=== PATIENT | male | born 1960 | race Caucasian/White ===

== ENCOUNTER 2017-11-03 13:51 | Emergency (ER) | payer OTHER, BC ==
[2017-11-03 15:15] LABS: BASO # 0.1 10^3/uL (0.0-0.2); BASO % 0.8 % (0.0-1.0); EOS # 0.1 10^3/uL (0.0-0.50); EOS % 1.3 % (0.0-3.0); HEMATOCRIT 41.1 % (42.0-52.0); HEMOGLOBIN 14.2 g/dl (14.0-18.0); IMMATURE GRANULOCYTE % 0.2 % (0-0); LYMPH # 1.9 10^3/uL (1.5-4.5); LYMPH % 21.2 % (24.0-44.0); MEAN CORPUSCULAR HEMOGLOBIN 32.2 pg (27.0-33.0); MEAN CORPUSCULAR HGB CONC 34.5 g/dl (32.0-36.5); MEAN CORPUSCULAR VOLUME 93.2 fl (80.0-96.0); MONO # 0.9 10^3/uL (0.0-0.8); MONO % 9.8 % (0.0-5.0); NEUTROPHILS # 5.9 10^3/uL (1.8-7.7); NEUTROPHILS % 66.7 % (36.0-66.0); PLATELET COUNT, AUTOMATED 215 10^3/uL (150-450); RED BLOOD COUNT 4.41 10^6/uL (4.30-6.10); RED CELL DISTRIBUTION WIDTH 12.7 % (11.5-14.5); WHITE BLOOD COUNT 8.9 10^3/uL (4.0-10.0)
[2017-11-03] MEDS ORDERED: ISOVUE-370 76% 100ML VIAL (Q9967) As Ordered (15:29)
[2017-11-03 15:38] LABS: ALBUMIN 4.7 GM/DL (3.2-5.2); ALBUMIN/GLOBULIN RATIO 1.21 (1.00-1.93); ALKALINE PHOSPHATASE 102 U/L (45-117); ALT/SGPT 24 U/L (12-78); ANION GAP 5 MEQ/L (8-16); AST/SGOT 14 U/L (7-37); BILIRUBIN,TOTAL 0.3 MG/DL (0.2-1.0); BLOOD UREA NITROGEN 24 MG/DL (7-18); CALCIUM LEVEL 9.3 MG/DL (8.5-10.1); CARBON DIOXIDE LEVEL 29 MEQ/L (21-32); CHLORIDE LEVEL 106 MEQ/L (98-107); CREATININE FOR GFR 1.04 MG/DL (0.70-1.30); GLOMERULAR FILTRATION RATE > 60.0 (>56); GLUCOSE, FASTING 88 MG/DL (70-105); POTASSIUM SERUM 3.9 MEQ/L (3.5-5.1); SODIUM LEVEL 140 MEQ/L (136-145); TOTAL PROTEIN 8.6 GM/DL (6.4-8.2)
[2017-11-03] MEDS: AUGMENTIN 875 MG TAB PO (18:30)
== END 2017-11-03 18:37 | disposition home or self-care (01) ==
LOC: M ED 13:51
DX: R59.0 Localized enlarged lymph nodes (principal); E78.00 Pure hypercholesterolemia, unspecified; I10 Essential (primary) hypertension; M79.9 Soft tissue disorder, unspecified; F32.9 Major depressive disorder, single episode, unspecified; K57.30 Diverticulosis of large intestine without perforation or abscess without bleeding; Z79.82 Long term (current) use of aspirin; Z79.899 Other long term (current) drug therapy
CPT/HCPCS: Q9967

== ENCOUNTER 2020-02-15 09:56 | Inpatient (IN) | payer OTHER ==
[~2020-02-15] VITALS: Ht 185.4 cm; Wt 106.9 kg
[2020-02-15] VITALS (19 sets, daily range): BP systolic 101–120; BP diastolic 55–67
[~2020-02-15 09:56] MED LIST: ALLO300T2 PO; AMLO10TA2 PO; AMOX875T19 PO; ASPI81CH PO; AUGM875T28 PO; BACT800T5 PO; BUPR100T6 PO; CIPR500T89 PO; DICL50TAB PO; FLUO20CA20 PO; FURO20TA2 PO; MELO15TA3 PO; METO100T PO; POTA20TA PO; PRAV10TA4 PO; SERT-138 PO; TYLE325T5 PO; ZEST20TA8 PO; [UNRECOGNIZED DRUG - REMARK]; [UNRECOGNIZED DRUG - REMARK]; [UNRECOGNIZED DRUG - REMARK]; [UNRECOGNIZED DRUG - REMARK]; pota
[2020-02-15] MEDS ORDERED: NS 1,000 ML IV ONE (10:15)
[2020-02-15] MEDS ORDERED: PANTOPRAZOLE 40MG VIAL (C9113 PER 1) IV ONE (10:15)
[2020-02-15 10:50] LABS: BASO % 0.4 % (0.0-1.0); EOS # 0.1 10^3/uL (0.0-0.5); EOS % 0.6 % (0.0-3.0); LYMPH # 1.1 10^3/uL (1.5-5.0); LYMPH % 13.7 % (24.0-44.0); MONO # 0.7 10^3/uL (0.0-0.8); MONO % 9.4 % (0.0-5.0); NEUTROPHILS % 75.4 % (36.0-66.0); PLATELET COUNT, AUTOMATED 148 10^3/uL (150-450); RED BLOOD COUNT 1.91 10^6/uL (4.30-6.10); WHITE BLOOD COUNT 7.9 10^3/uL (4.0-10.0)
[2020-02-15 10:54] LABS: HEMATOCRIT 19.1 % (42.0-52.0)
[2020-02-15 10:55] LABS: HEMOGLOBIN 6.3 g/dl (13.5-17.5)
[2020-02-15 11:01] LABS: INR 1.15; PROTHROMBIN TIME 14.4 SECONDS (11.8-14.0)
[2020-02-15 11:21] LABS: ALBUMIN 3.3 GM/DL (3.2-5.2); ALT/SGPT 21 U/L (12-78); BILIRUBIN,DIRECT < 0.1 MG/DL (0.0-0.2); BILIRUBIN,TOTAL 0.2 MG/DL (0.2-1.0); CPK CREATINE PHOSPHOKINASE 98 U/L (39-308); LIPASE 161 U/L (73-393); MB/CK RELATIVE INDEX 2.04 (< OR =4); TROPONIN I < 0.02 NG/ML (< 0.10)
[2020-02-15] MEDS ORDERED: CYAN100050 PO (12:54)
[2020-02-15] MEDS ORDERED: LISI40TA PO (12:54)
[2020-02-15] MEDS ORDERED: COEN100T PO (12:54)
[2020-02-15] MEDS ORDERED: MULT-6 PO (12:54)
[2020-02-15] MEDS ORDERED: FISH1000 PO (12:54)
[2020-02-15] MEDS ORDERED: METO100T5 PO (12:54)
[2020-02-15] MEDS ORDERED: TRIA37.5 PO (12:54)
[2020-02-15] MEDS ORDERED: ASPI-161 PO (12:54)
[2020-02-15] MEDS ORDERED: AMLO10TA5 PO (12:54)
[2020-02-15] MEDS ORDERED: ZYLO300T6 PO (12:54)
[2020-02-15] MEDS ORDERED: CRES40TA PO (12:54)
[2020-02-15 13:35] LABS: MEAN CORPUSCULAR HEMOGLOBIN 33.3 pg (27.0-33.0); MEAN CORPUSCULAR HGB CONC 33.5 g/dl (32.0-36.5); MEAN CORPUSCULAR VOLUME 99.5 fl (80.0-96.0); PLATELET COUNT, AUTOMATED 160 10^3/uL (150-450); RED BLOOD COUNT 1.98 10^6/uL (4.30-6.10); WHITE BLOOD COUNT 8.4 10^3/uL (4.0-10.0)
[2020-02-15 13:43] LABS: HEMATOCRIT 19.7 % (42.0-52.0); HEMOGLOBIN 6.6 g/dl (13.5-17.5)
[2020-02-15] MEDS: PANTOPRAZOLE SODIUM 40 MG in D5W 50 ML IV SCH ×3 (13:46→23:35)
[2020-02-15] MEDS: LR 1,000 ML IV SCH ×2 (14:58→18:00)
--- NOTE | 2020-02-15 18:38 | ECGEPIP ---
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
--- NOTE | 2020-02-15 19:52 | IPNPDOC ---
Text Note Date of Service The patient was seen on 02/15/20. NOTE Patient is a 59M admitted through the ED with complaints of weakness, lighthea ded, dizziness associated with passage of melanotic stools for the past 3 days. He reports some burning discomfort in his epigastrium. Denies vomiting, hematemesis. He does not have significant alcohol history. He takes NSAIDs for arthritis and 81 mg aspirin daily. He has no prior history of peptic ulcer disease. He was found to be profoundly anemic with hgb of 6.3 On exam, overall looks comfortable pale appearing lips dry, no obvius jugular venous distention regular heart rate and rhythm, no murmurs clear breath sounds to auscultation bilaterally. abdomen, soft, nondistended, nontender impression Upper GI bleed Patient is currently receiving 2 u prbc. He is hemodynamically stable. He was counseled for need for endoscopy both for diagnostic and therapeutic effect. VS,Fishbone, I+O VS, Fishbone, I+O Laboratory Tests 02/15/20 10:29 02/15/20 13:14 Vital Signs Date Time Temp Pulse Resp B/P (MAP) Pulse Ox O2 Delivery O2 Flow Rate FiO2 02/15/20 18:45 99.0 68 18 112/61 97 Room Air JULIO CANALES MD February 15, 2020 19:52
[2020-02-15 20:00] LABS: HEMATOCRIT 22.2 % (42.0-52.0); HEMOGLOBIN 7.5 g/dl (13.5-17.5); MEAN CORPUSCULAR HEMOGLOBIN 32.5 pg (27.0-33.0); MEAN CORPUSCULAR HGB CONC 33.8 g/dl (32.0-36.5); MEAN CORPUSCULAR VOLUME 96.1 fl (80.0-96.0); PLATELET COUNT, AUTOMATED 141 10^3/uL (150-450); RED BLOOD COUNT 2.31 10^6/uL (4.30-6.10); WHITE BLOOD COUNT 7.2 10^3/uL (4.0-10.0)
[2020-02-15] MEDS ORDERED: propofoL 200 MG/20 ML VIAL As Ordered ONE (20:38)
[2020-02-15] MEDS ORDERED: LIDOCAINE 2% 100MG/5ML SDV (FOR ANES.) As Ordered ONE (20:38)
[2020-02-15] MEDS ORDERED: PHENYLephrine HCL 500 MCG/5 ML (100MCG/ML) SYRINGE (J2370) As Ordered ONE (20:44)
--- NOTE | 2020-02-15 20:50 | ROOR ---
Patient Name: Rangel Gannon Procedure Date: 02/15/2020 7:55 PM Date of : 1960 Age: 59 Room: icu Gender: Male Note Status: Finalized Procedure: Upper GI endoscopy Indications: Melena Providers: Chava Gonzalez MD Referring MD: 2. Inpatient 2. Inpatient Requesting Provider: Medicines: Monitored Anesthesia Care Complications: No immediate complications. Procedure: Pre-Anesthesia Assessment: - Prior to the procedure, a History and Physical was performed, and patient medications and allergies were reviewed. The patient is competent. The risks and benefits of the procedure and the sedation options and risks were discussed with the patient. All questions were answered and informed consent was obtained. Patient identification and proposed procedure were verified by the physician, the nurse and the anesthesiologist in the procedure room. Mental Status Examination: alert and oriented. Airway Examination: normal oropharyngeal airway and neck mobility. Respiratory Examination: clear to auscultation. CV Examination: normal. Prophylactic Antibiotics: The patient does not require prophylactic antibiotics. Prior Anticoagulants: The patient has taken no previous anticoagulant or antiplatelet agents except for aspirin. ASA Grade Assessment: III - A patient with severe systemic disease. After reviewing the risks and benefits, the patient was deemed in satisfactory condition to undergo the procedure. The anesthesia plan was to use monitored anesthesia care (MAC). Immediately prior to administration of medications, the patient was re-assessed for adequacy to receive sedatives. The heart rate, respiratory rate, oxygen saturations, blood pressure, adequacy of pulmonary ventilation, and response to care were monitored throughout the procedure. The physical status of the patient was re-assessed after the procedure. The Endoscope was introduced through the mouth, and advanced to the second part of duodenum. The upper GI endoscopy was accomplished without difficulty. The patient tolerated the procedure well. Findings: Islands of salmon-colored mucosa were present at 20 cm. No other visible abnormalities were present. A small hiatal hernia was present. Diffuse atrophic mucosa was found in the gastric body. A single small mucosal papule (nodule) with no bleeding and no stigmata of recent bleeding was found in the prepyloric region of the stomach. Biopsies were taken with a cold forceps for Helicobacter pylori testing. One non-bleeding cratered duodenal ulcer with no stigmata of bleeding was found in the first portion of the duodenum. The lesion was 4 mm in largest dimension. This was biopsied with a cold forceps for histology. Patchy mild inflammation characterized by congestion (edema) and erythema was found in the first portion of the duodenum. A medium non-bleeding diverticulum was found in the second portion of the duodenum. The second portion of the duodenum was normal. No signs of active bleeding at the stomach and duodenum, normal 2nd portion of duodenum Impression: - Olla-colored mucosa. - Small hiatal hernia. - Gastric mucosal atrophy. - A single mucosal papule (nodule) found in the stomach. Biopsied. - Non-bleeding duodenal ulcer with no stigmata of bleeding. Biopsied. - Acute duodenitis. - Non-bleeding duodenal diverticulum. - Normal second portion of the duodenum. Recommendation: - Full liquid diet today. - Use Protonix (pantoprazole) 40 mg PO BID today. Chava Gonzalez MD Chava Gonzalez MD 02/15/2020 8:50:11 PM Electronically signed by Chava Gonzalez MD Number of Addenda: 0 Note Initiated On: 02/15/2020 7:55 PM Estimated Blood Loss: Estimated blood loss was minimal.
[2020-02-15] MEDS ORDERED: LACTATED RINGER'S 1000 ML IV STA (21:22)
[2020-02-15] MEDS ORDERED: LR 1,000 ML IV SCH (21:30)
[2020-02-15] MEDS ORDERED: ONDANSETRON 4MG/2ML VIAL IV PRN (21:30)
[2020-02-16] VITALS (15 sets, daily range): BP systolic 91–120; BP diastolic 54–70
[2020-02-16] MEDS: PANTOPRAZOLE SODIUM 40 MG in D5W 50 ML IV SCH ×2 (04:14→09:21)
[2020-02-16 04:42] LABS: HEMATOCRIT 26.6 % (42.0-52.0); HEMOGLOBIN 8.9 g/dl (13.5-17.5); MEAN CORPUSCULAR HEMOGLOBIN 31.4 pg (27.0-33.0); MEAN CORPUSCULAR HGB CONC 33.5 g/dl (32.0-36.5); PLATELET COUNT, AUTOMATED 120 10^3/uL (150-450); RED BLOOD COUNT 2.83 10^6/uL (4.30-6.10); WHITE BLOOD COUNT 6.7 10^3/uL (4.0-10.0)
[2020-02-16 05:03] LABS: BLOOD UREA NITROGEN 23 MG/DL (7-18); CALCIUM LEVEL 7.8 MG/DL (8.5-10.1); CARBON DIOXIDE LEVEL 29 MEQ/L (21-32); CHLORIDE LEVEL 110 MEQ/L (98-107); GLOMERULAR FILTRATION RATE > 60.0 (>56); GLUCOSE, FASTING 108 MG/DL (70-100); POTASSIUM SERUM 3.9 MEQ/L (3.5-5.1); SODIUM LEVEL 145 MEQ/L (136-145)
--- NOTE | 2020-02-16 11:35 | IPNPDOC ---
Date Seen The patient was seen on 02/16/20. Progress Note SUBJECTIVE: Pt is a 59-year-old with past medical history of arthritis of NSAID use presents with abdominal pain and found to have a hemoglobin of 6.3. Hes postop day #1 status post endoscopy and status post 2 units of PRBC. Hemoglobin today 8.9. COVID screen negative. EGD performed by Dr. Gonzalez revealing gastric mucosal atrophy, nonbleeding duodenal ulcer with no stigmata of bl eeding, acute duodenitis, salmon-colored mucosa and a single colored papule/nodule on stomach. Will follow-up on duodenal biopsy (obtained 02/15/20). Tolerated full liquid diet, continue Protonix 40 mg twice a day. doing well, had an episode of tachycardia when getting up, which resolved at rest. OBJECTIVE PHYSICAL EXAMINATION: VITAL SIGNS: Please see below. GENERAL: No distress HEENT: Normocephalic, atraumatic, moist mucous membranes, pallor NECK: Supple CARDIOVASCULAR EXAMINATION: S1, S2 RESPIRATORY EXAMINATION: CTAB ABDOMINAL EXAMINATION: Soft, nontender, nondistended, positive bowel sounds EXTREMITIES: no edema SKIN: No rash NEUROLOGICAL EXAMINATION: Awake PSYCHIATRIC EXAMINATION: Calm and cooperative, appropriate affect LABORATORY DATA, IMAGING STUDIES, MICROBIOLOGY: Follow-up with stomach biopsy obtained 02/15/20. DVT prophylaxis ordered?: Frequent ambulation ASSESSMENT AND PLAN: Pt is a 59-year-old with past medical history of arthritis of NSAID use presents with abdominal pain and found to have a hemoglobin of 6.3. Hes postop day #1 status post endoscopy and status post 2 units of PRBC. PROBLEMS: 1. Anemia: Consider secondary to NSAID use, negative EGD findings. We'll also consider anemia workup, such as iron studies, B12, and folate studies as outpatient, will hold off at this time due to distortion of results from blood transfusion. Monitor CBC. Hold home ASA today, resume at discharge. Follow-up with H. pylori biopsy as an outpatient. 2. HTN: Currently low, we'll hold off on home BP meds at this time. 3. Gout: Continue home med DVT ppx: SCD Full code DISPOSITION: DC home tomorrow. 02/17/2020 VS, I&O, 24H, Fishbone Vital Signs/I&O Vital Signs Date Time Temp Pulse Resp B/P (MAP) Pulse Ox O2 Delivery O2 Flow Rate FiO2 02/16/20 10:47 89 18 116/63 (80) 97 Room Air 02/16/20 08:00 98.2 I&O- Last 24 Hours up to 6 AM 02/16/20 05:59 Intake Total 6040 ml Output Total 3625 ml Balance 2415 ml Laboratory Data 24H LABS Laboratory Tests 2 02/15/20 13:10: Coronavirus (COVID-19)(PCR) NEGATIVE 02/15/20 13:14: Nucleated Red Blood Cells % (auto) 0.0 02/15/20 19:50: Nucleated Red Blood Cells % (auto) 0.0 02/16/20 04:17: Nucleated Red Blood Cells % (auto) 0.3H, Anion Gap 6L, Glomerular Filtration Rate > 60.0, Calcium Level 7.8L CBC/BMP Laboratory Tests 02/15/20 13:14 02/15/20 19:50 02/16/20 04:17 EDDIE TRACEY MD February 16, 2020 11:26
[2020-02-16 13:05] LABS: HEMATOCRIT 29.1 % (42.0-52.0); MEAN CORPUSCULAR HEMOGLOBIN 32.3 pg (27.0-33.0); MEAN CORPUSCULAR HGB CONC 34.4 g/dl (32.0-36.5); MEAN CORPUSCULAR VOLUME 93.9 fl (80.0-96.0); PLATELET COUNT, AUTOMATED 143 10^3/uL (150-450); WHITE BLOOD COUNT 7.4 10^3/uL (4.0-10.0)
[2020-02-16 19:12] LABS: HEMATOCRIT 28.2 % (42.0-52.0); HEMOGLOBIN 9.8 g/dl (13.5-17.5); MEAN CORPUSCULAR HEMOGLOBIN 32.3 pg (27.0-33.0); MEAN CORPUSCULAR HGB CONC 34.8 g/dl (32.0-36.5); MEAN CORPUSCULAR VOLUME 93.1 fl (80.0-96.0); PLATELET COUNT, AUTOMATED 140 10^3/uL (150-450); RED BLOOD COUNT 3.03 10^6/uL (4.30-6.10); WHITE BLOOD COUNT 7.7 10^3/uL (4.0-10.0)
[2020-02-16] MEDS: PANTOPRAZOLE 40MG TAB (PROTONIX) PO SCH (20:06)
[2020-02-17 01:10] LABS: HEMATOCRIT 27.1 % (42.0-52.0); HEMOGLOBIN 9.2 g/dl (13.5-17.5); MEAN CORPUSCULAR HEMOGLOBIN 31.9 pg (27.0-33.0); MEAN CORPUSCULAR HGB CONC 33.9 g/dl (32.0-36.5); MEAN CORPUSCULAR VOLUME 94.1 fl (80.0-96.0); PLATELET COUNT, AUTOMATED 140 10^3/uL (150-450); RED BLOOD COUNT 2.88 10^6/uL (4.30-6.10); WHITE BLOOD COUNT 7.1 10^3/uL (4.0-10.0)
--- NOTE | 2020-02-17 01:32 | HPE ---
DATE OF ADMISSION: 02/15/2020 PRIMARY CARE PROVIDER: [facility]. ATTENDING PHYSICIAN: Hospitalist group. PRINCIPAL DIAGNOSIS: Upper gastrointestinal (GI) bleed with acute blood loss anemia. HISTORY: Rangel Gannon is a 59-year-old with no past history of GI bleeding. He has been passing melanotic stool for the last 3 days. He presented to the emergency room after becoming lightheaded at work. He was orthostatic in the emergency room and was confirmed to be passing melena. He had an admission hemoglobin of 6.3. Denies any abdominal pain. Frequently takes diclofenac. Has no other risk factors for ulceration. He has no history of cirrhosis, varices, or gastritis. PAST MEDICAL HISTORY: Shows colon cancer completely resected a few years ago. Did not require chemotherapy or radiation therapy afterward. He has a history of an atrioventricular (AV) ablation for supraventricular tachycardia (SVT), type 2 diabetes, hyperlipidemia, hypertension, B12 deficiency, and arthritis. HOME MEDICINES: - allopurinol 300 mg daily - amlodipine 10 mg daily - aspirin 81 mg daily - B12 at 1000 mcg daily - diclofenac tablet 100 mg twice a day as needed - fluoxetine 20 mg nightly - lisinopril 40 mg twice a day - metoprolol tartrate 100 mg twice a day - Crestor 40 mg daily - triamterene/hydrochlorothiazide 37.5/25 daily - coenzyme Q10 daily - omega-3 fatty acid ALLERGIES: None known. SOCIAL HISTORY: Does not smoke or drink any alcohol. REVIEW OF SYSTEMS: Denies abdominal pain. He has been dizzy and lightheaded. He has had some dyspnea on exertion. Denies any chest pain. No unexplained weight loss, fever, chills. SURGICAL HISTORY: AV ablation and partial colectomy. PHYSICAL EXAMINATION: VITAL SIGNS: Per emergency room (ER) flow sheet. His blood pressure (BP) was 104. Per report, he had an orthostatic drop of his blood pressure. GENERAL APPEARANCE: Alert, conversant, in no distress. Pupils equal, round, reactive to light. Tympanic membranes (TMs) and oropharynx benign. HEART: Regular rhythm. No murmur. ABDOMEN: Soft, nontender. No masses. Melanotic stool per emergency room. EXTREMITIES: No clubbing, cyanosis. Trace peripheral edema. Normal strength in the arms and legs. LABS: White count 7.9, hemoglobin 6.3, platelets 148. Sodium 137, potassium 4.4, BUN 52, creatinine 1.3. Liver functions normal. PT/PTT normal. White count 8.4, hemoglobin 6.6, platelets 160. IMPRESSION: 1. Upper gastrointestinal bleed with acute blood loss anemia, requiring transfusion. The patient will be admitted to the intensive care unit (ICU). I have ordered a Protonix drip. Consulted Dr. Gonzalez (no GI coverage) for urgent esophagogastroduodenoscopy (EGD). We discussed possible octreotide, and he advised that we wait until endoscopy and I will defer on that point. It is probably ulcer related to the diclofenac. IV Protonix has been ordered. Fluid resuscitation is ordered and serial complete blood counts (CBCs). Blood was ordered in the emergency room but not yet transfused until transferred to ICU. 2. History of depression. He is on fluoxetine. If he does prove to have an ulcer, it might be prudent to change this to a different antidepressant, as selective serotonin reuptake inhibitors (SSRIs) are associated with recurrent GI bleeding in patients with peptic ulcer disease. 3. Hyperlipidemia. Restart Crestor once medically stable. 4. Hypertension/supraventricular tachycardia. Hold his beta-flaquita for now. Once hemodynamically stable, will restart metoprolol but hold off on lisinopril and amlodipine as well as a diuretic for now. 5. History of gout. Restart allopurinol once taking oral safely.
[2020-02-17 06:00] VITALS: BP 118/63
[2020-02-17 06:54] LABS: HEMATOCRIT 27.1 % (42.0-52.0); HEMOGLOBIN 9.3 g/dl (13.5-17.5); MEAN CORPUSCULAR HEMOGLOBIN 32.6 pg (27.0-33.0); MEAN CORPUSCULAR HGB CONC 34.3 g/dl (32.0-36.5); MEAN CORPUSCULAR VOLUME 95.1 fl (80.0-96.0); PLATELET COUNT, AUTOMATED 137 10^3/uL (150-450); RED BLOOD COUNT 2.85 10^6/uL (4.30-6.10); WHITE BLOOD COUNT 6.1 10^3/uL (4.0-10.0)
[2020-02-17 07:15] LABS: BLOOD UREA NITROGEN 17 MG/DL (7-18); CALCIUM LEVEL 8.3 MG/DL (8.5-10.1); CARBON DIOXIDE LEVEL 28 MEQ/L (21-32); CHLORIDE LEVEL 105 MEQ/L (98-107); CREATININE FOR GFR 0.88 MG/DL (0.70-1.30); GLOMERULAR FILTRATION RATE > 60.0 (>56); GLUCOSE, FASTING 127 MG/DL (70-100); POTASSIUM SERUM 3.8 MEQ/L (3.5-5.1); SODIUM LEVEL 139 MEQ/L (136-145)
--- NOTE | 2020-02-17 09:18 | DS.PDOC ---
Discharge Summary General Date of Admission February 15, 2020 at 12:57 Date of Discharge 02/17/20 Discharge Summary PROCEDURES PERFORMED DURING STAY: EGD ADMITTING DIAGNOSES: 1. anemia, UGIB DISCHARGE DIAGNOSES: 1. anemia COMPLICATIONS/CHIEF COMPLAINT: Acute Upper Gi Hemorrhage. HISTORY OF PRESENT ILLNESS/ HOSPITAL COURSE: Pt is a 59-year-old with past medical history of arthritis of NSAID use presents with abdominal pain and found to have a hemoglobin of 6.3. Hes postop day #1 status post endoscopy and status post 2 units of PRBC. Hemoglobin today 8.9. COVID screen negative. EGD performed by Dr. Gonzalez revealing gastric mucosal atrophy, nonbleeding duodenal ulcer with no stigmata of bleeding, acute duodenitis, salmon-colored mucosa, biopsy for H. pylori evaluation was obtained. Follow-up on biopsy (obtained 02/15/20) as an outpatient. Tolerated full liquid diet, continue Protonix 40 mg twice a day. The day after EGD, patient was transferred out of ICU, had an episode of lightheadedness and tachycardia. Patient was kept overnight and had no additional events. On day of discharge, he denies any lightheadedness, dizziness, changes in vision, nausea, vomiting, abdominal pain, still has black stools which are more formed. Discharge labs include hemoglobin 9.3 which is stable from previous days. Elevated BUNs improved, at discharge level at 17, creatinine 0.88, glucose 127. During hospitalization, COVID screen negative. Recommendations to follow-up with PCP in 1 week, will consider obtaining CBC and iron studies/B12/folate studies if anemia persists with bowel movement improvem ent. Will need to follow up with PCP to be cleared to return to work. Okay to resume home aspirin, hold NSAIDs, follow-up with PCP on pain control, okay to use Tylenol for pain. DISCHARGE MEDICATIONS: Please see below. ALLERGIES: Please see below. PHYSICAL EXAMINATION ON DISCHARGE: VITAL SIGNS: Please see below. GENERAL: No distress HEENT: Normocephalic, atraumatic, moist mucous membranes, pallor NECK: Supple CARDIOVASCULAR EXAMINATION: S1, S2 RESPIRATORY EXAMINATION: CTAB ABDOMINAL EXAMINATION: Soft, nontender, nondistended, positive bowel sounds EXTREMITIES: no edema SKIN: No rash NEUROLOGICAL EXAMINATION: Awake PSYCHIATRIC EXAMINATION: Calm and cooperative, appropriate affect LABORATORY DATA: Please see below. IMAGING: none PROGNOSIS: good ACTIVITY: As tolerated. DISCHARGE PLAN: see above DISPOSITION: home DISCHARGE INSTRUCTIONS: 1. see above ITEMS TO FOLLOWUP ON ON OUTPATIENT: 1. see above DISCHARGE CONDITION: Stable. TIME SPENT ON DISCHARGE: Greater than 32 minutes. Vital Signs/I&Os Vital Signs Date Time Temp Pulse Resp B/P (MAP) Pulse Ox O2 Delivery O2 Flow Rate FiO2 02/17/20 06:00 98.6 67 20 118/63 (81) 97 Room Air I&O- Last 24 Hours up to 6 AM 02/17/20 06:00 Intake Total 1720 ml Output Total 1900 ml Balance -180 ml Laboratory Data Labs 24H Laboratory Tests 2 02/16/20 12:50: Nucleated Red Blood Cells % (auto) 0.3H 02/16/20 19:03: Nucleated Red Blood Cells % (auto) 0.3H 02/17/20 00:51: Nucleated Red Blood Cells % (auto) 0.4H 02/17/20 06:26: Nucleated Red Blood Cells % (auto) 0.3H, Anion Gap 6L, Glomerular Filtration Rate > 60.0, Calcium Level 8.3L 02/17/20 06:37: Bedside Glucose (Misc Panel) 135H CBC/BMP Laboratory Tests 02/16/20 12:50 02/16/20 19:03 02/17/20 00:51 02/17/20 06:26 FSBS Laboratory Tests Test 02/17/20 06:37 Range/Units Bedside Glucose (Misc Panel) 135 70-105 MG/DL Discharge Medications Scheduled Allopurinol (Zyloprim) 300 Mg Tablet, 300 MG PO DAILY, (Reported) Amlodipine Besylate (Amlodipine Besylate) 10 Mg Tablet, 10 MG PO DAILY, (Reported) Aspirin (Aspirin EC) 81 Mg Tablet.dr, 81 MG PO DAILY, (Reported) Cyanocobalamin (Vitamin B-12) (Vitamin B-12) 1,000 Mcg Tablet, 1,000 MCG PO DAILY, (Reported) Fluoxetine Hcl (Fluoxetine HCl) 20 Mg Cap, 20 MG PO QHS, (Reported) Lisinopril (Lisinopril) 40 Mg Tablet, 40 MG PO BID, (Reported) Metoprolol Tartrate (Metoprolol Tartrate) 100 Mg Tablet, 100 MG PO BID, (Reported) Multivit-Min/Folic/Vit K/Lycop (Men's 50 Plus Multivitamin Tab) 1 Each Tablet, 1 TAB PO DAILY, (Reported) [place]-3 Fatty Acids/Fish Oil (Fish Oil 1,000 mg Capsule) 1 Each Capsule, 1,000 MG PO DAILY, (Reported) Rosuvastatin Calcium (Crestor) 40 Mg Tablet, 40 MG PO QHS, (Reported) Triamterene/Hydrochlorothiazid (Triamterene-Hctz 37.5-25 mg Tb) 1 Each Tablet, 1 TAB PO DAILY, (Reported) Ubidecarenone (Coenzyme Q10) 100 Mg Tablet, 100 MG PO DAILY, (Reported) Scheduled PRN Diclofenac Sodium (Diclofenac Sodium) 50 Mg Tab, 100 MG PO BID PRN for PAIN, (Reported) Allergies Coded Allergies: No Known Allergies (Unverified , 09/30/13) EDDIE TRACEY MD February 17, 2020 09:15
[2020-02-17] MEDS ORDERED: PANT40TA3 PO (09:20)
[2020-02-17] MEDS: PANTOPRAZOLE 40MG TAB (PROTONIX) PO SCH (10:14)
== END 2020-02-17 12:49 | disposition home or self-care (01) | DRG 812 ==
LOC: EDBD 09:56 → M ED 09:56 → M ED INP 12:57 → ENRESERV 13:04 → M ICU 14:30 → M MSPAV 02-16 12:53
PROVIDERS: ADMIT Family Medicine; ATTEND Family Medicine
PROC: 0DB98ZX Excision of Duodenum, Via Natural or Artificial Opening Endoscopic, Diagnostic (ICD-10-PCS; 2020-02-15)
PROC: 30233N1 Transfusion of Nonautologous Red Blood Cells into Peripheral Vein, Percutaneous Approach (ICD-10-PCS; 2020-02-15)
PROC: 0DB78ZX Excision of Stomach, Pylorus, Via Natural or Artificial Opening Endoscopic, Diagnostic (ICD-10-PCS; principal; 2020-02-15 20:00)
DX: D62 Acute posthemorrhagic anemia (principal); I47.1 Supraventricular tachycardia; E11.9 Type 2 diabetes mellitus without complications; E78.5 Hyperlipidemia, unspecified; M10.9 Gout, unspecified; I10 Essential (primary) hypertension; E53.8 Deficiency of other specified B group vitamins; M19.90 Unspecified osteoarthritis, unspecified site; K44.9 Diaphragmatic hernia without obstruction or gangrene; K26.9 Duodenal ulcer, unspecified as acute or chronic, without hemorrhage or perforation; K29.80 Duodenitis without bleeding; K57.50 Diverticulosis of both small and large intestine without perforation or abscess without bleeding; Z79.1 Long term (current) use of non-steroidal anti-inflammatories (NSAID); Z79.82 Long term (current) use of aspirin; Z85.038 Personal history of other malignant neoplasm of large intestine; Z79.899 Other long term (current) drug therapy